=== PATIENT | female | born 2000 | race Caucasian/White ===

== ENCOUNTER 2023-07-09 15:14 | Emergency (ER) | payer OTHER, SELFPAY ==
[2023-07-09 15:23] VITALS: BP 162/93
[2023-07-09 16:08] LABS: Beta HCG Quantitative 764.43 mIU/ml
--- NOTE | 2023-07-09 16:15 | ED.GENMED ---
History of Present Illness
<Hemal Donohue Jr., PA-C - Last Filed: 07/10/23 11:45>
General
Chief Complaint: Problems
Source: patient and family
Exam Limitations: none
Time Seen by Provider: 07/09/23 16:04
Nursing documentation reviewed up to this point in time: agreed with
Travel History
Have you had any contact with someone who has COVID-19?: No
Do you have any symptoms of coronavirus? Fever > 100 degrees, chills, cough, shortness of breath, sore throat, loss of taste or smell, muscle aches, or headache?: No
History of Present Illness
History of Present Illness:
22-year-old female without with past ministry of PCOS presenting to the emergency department today with concerns of with mild pelvic discomfort. Tested positive last week for patient is with 1 miscarriage. Had 2 positive
tests at home. Denies any vaginal bleeding or discharge. Patient does not have regular menstrual cycles due to PCOS and last menstrual cycle was 3 months ago.
Review of Systems
<Hemal Donohue Jr., PA-C - Last Filed: 07/10/23 11:45>
Review of Systems
Allergies reviewed?: Yes
All Other Systems: ROS reviewed and negative except as documented in HPI and ROS
Phy Exam
<Hemal Donohue Jr., PA-C - Last Filed: 07/10/23 11:45>
Physical Exam
Physical Exam:
GENERAL: Alert , in no apparent distress
EYE: pupils equal and reactive
NECK: Supple, no significant adenopathy.
ENT: o/p clr, mmm.
CARDIAC: Regular rate and rhythm .
LUNGS: Clear breath sounds bilaterally, no acute respiratory distress, no wheezes/rales/rhonchi
ABDOMEN: Soft, without focal tenderness, no r/g, no cvat
NEUROLOGICAL: Alert and oriented, no focal neuro deficits
SKIN: Warm and dry, skin intact.
MUSCULOSKELETAL: No edema, well perfused.
PSYCH: Normal and appropriate interaction.
Course
<Hemal Donohue Jr., PA-C - Last Filed: 07/10/23 11:45>
Orders/Labs/Results
Orders:
Orders
07/09/23 15:31
HCG, Beta Quantitative [Beta HCG Quantitative] Urgent
Is this a screen?: No
07/09/23 16:08
Vital Signs- Treatment ONCE
Frequency: Once
07/09/23 16:26
Urinalysis Reflex To Culture Urgent
Date Specimen was Collected: 07/09/23
Time Specimen was Collected: 16:20
Vital Signs
Initial and Last Documented VS:
Initial Vital Signs
Temp Pulse Resp BP Pulse Ox
98.3 F 102 18 162/93 99
07/09/23 15:23 07/09/23 15:23 07/09/23 15:23 07/09/23 15:23 07/09/23 15:23
Last Documented Vital Signs
Temp Pulse Resp BP Pulse Ox
98.3 F 100 18 134/81 99
07/09/23 15:23 07/09/23 16:30 07/09/23 16:30 07/09/23 16:30 07/09/23 16:30
<Heber Ortega PA-C - Last Filed: 07/09/23 21:19>
Orders/Labs/Results
Orders:
Orders
07/09/23 15:31
HCG, Beta Quantitative [Beta HCG Quantitative] Urgent
Is this a screen?: No
07/09/23 16:08
Vital Signs- Treatment ONCE
Frequency: Once
07/09/23 16:26
Urinalysis Reflex To Culture Urgent
Date Specimen was Collected: 07/09/23
Time Specimen was Collected: 16:20
Vital Signs
Initial and Last Documented VS:
Initial Vital Signs
Temp Pulse Resp BP Pulse Ox
98.3 F 102 18 162/93 99
07/09/23 15:23 07/09/23 15:23 07/09/23 15:23 07/09/23 15:23 07/09/23 15:23
Last Documented Vital Signs
Temp Pulse Resp BP Pulse Ox
98.3 F 100 18 134/81 99
07/09/23 15:23 07/09/23 16:30 07/09/23 16:30 07/09/23 16:30 07/09/23 16:30
Information
Weeks gestation: N/A
Location: N/A
<Hemal Donohue Jr., PA-C - Last Filed: 07/10/23 11:45>
MDM/Problems Addressed
MDM/Problems Addressed:
22-year-old female presenting to the emergency department today with concerns of pelvic discomfort in setting of early . She claims the pain is mild and crampy. Denies vaginal bleeding or discharge. Has no specific scheduled follow-up
did have multiple positive test at home. Here initial blood pressure is elevated heart rate slightly elevated beta quant is 764. Unclear the gestational age due to irregular periods due to PCOS. No belly pain on examination. Patient
well-appearing no acute distress. no bleeding.
<Heber Ortega PA-C - Last Filed: 07/09/23 21:19>
*Critical Care Note
Total Time (30-74mins, 75-104mins- exclusive of procedures): Not Applicable
<Heber Ortega PA-C - Last Filed: 07/09/23 21:19>
Update Note
Update Note:
07/09/2023 1650 PM: Assumed care of patient from Ladarius Donohue PA-C, at shift change. Patient presenting with lower abdominal cramping after a positive home test. No vaginal bleeding. Beta quant 764. Has established OB care through .
[facility]. Plan for ultrasound to rule out ectopic, if negative will be discharged outpatient follow-up
07/09/2023 1810 PM: Patient requesting to leave prior to completion of ultrasound. She states her pain is minimal and would prefer to follow-up with her THIN FILM TECHNICIAN. At this time appears clinically stable, low clinical suspicion for ectopic but she is
encouraged to return the emergency department if her pain worsens. She will call her OB at [facility] in the morning for a follow-up visit
ED Attending Note
<Hemal Donohue Jr., PA-C - Last Filed: 07/10/23 11:45>
-
Portions of this chart may have been created with voice recognition software.� Occasional wrong word or��sound alike� substitutions may have occurred due to the inherent limitations of voice recognition software.
Discharge Plan
Departure
Patient Disposition: Home (Routine Discharge)
Date of Disposition: 07/09/23
Time of Disposition: 18:09
Patient with high blood pressure during this ER visit?: No
Discharge Problem:
Abdominal pain affecting
Referrals:
Keith Larkin MD [Family Provider] -
Activity Restrictions/Additional Instructions:
You came to the emergency department today complaining abdominal pain associated with . We recommended an ultrasound to rule out an ectopic however you elected to leave prior to the completion of this. Please contact your THIN FILM TECHNICIAN
tomorrow for close follow-up, if your pain worsens do not hesitate to return to the emergency department
Interventions
Interventions:
*Risk Screen - Suicide Last Done: 07/09/23 15:23
*General Assessment Last Done: 07/09/23 15:23
*Neglect/Abuse Screening Last Done: 07/09/23 15:23
ED- Fall Risk Assessment Last Done: 07/09/23 16:31
*Nursing Disposition Last Done: 07/09/23 18:13
ED-Female Genitourinary Assessment Last Done: 07/09/23 16:31
Discharge Date and Time
Discharge Date/Time: 07/09/23 18:13
[2023-07-09 16:30] VITALS: BP 134/81
[2023-07-09 16:34] LABS: Urine Albumin Negative (Neg - Trace); Urine Bilirubin Negative (Negative); Urine Character Clear (Clear); Urine Color Yellow; Urine Glucose Negative (Negative); Urine Ketone Negative (Negative); Urine Leukocyte Negative (Negative); Urine Nitrite Negative (Negative); Urine Occult Blood Negative (Negative); Urine Specific Gravity 1.015 (<1.030); Urine Urobilinogen Negative (Neg - 1+)
== END 2023-07-09 18:13 | disposition home or self-care (01) ==
LOC: EMR 15:14
PROVIDERS: Physician Assistant; EMERGENCY PHYSICIAN Emergency Medicine; FAMILY PHYSICIAN Family Medicine
DX: O99.891 Other specified diseases and conditions complicating pregnancy (principal); R10.9 Unspecified abdominal pain
CPT/HCPCS: 99282; 81003; 84702

== ENCOUNTER 2023-08-16 09:17 | Emergency (ER) | payer OTHER, SELFPAY ==
[2023-08-16 09:31] VITALS: BP 132/101
--- NOTE | 2023-08-16 12:19 | ED.GENMED ---
History of Present Illness
General
Chief Complaint: Problems
Source: patient
Exam Limitations: none
Time Seen by Provider: 08/16/23 12:10
Nursing documentation reviewed up to this point in time: agreed with
Travel History
Have you had any contact with someone who has COVID-19?: No
Do you have any symptoms of coronavirus? Fever > 100 degrees, chills, cough, shortness of breath, sore throat, loss of taste or smell, muscle aches, or headache?: No
History of Present Illness
History of Present Illness:
Patient to ED with complaint of vaginal bleeding and back pain. States she is 7 weeks . Seen by OB ([facility]) 1 week ago. Had US confirming . No HR detected. Had HCG 2 weeks ago, reports level at '4000'. Denies fever/chiklls,
n/v/d. Brought to ED by sig other for eval. . States she had a miscarriage at 14weeks 2021
Past History
Past History
ED Past Medical History: None
ED Past Surgical History: Tonsilectomy and Other (wisdom teeth)
Social History
Tobacco: Vaping
Alcohol: None
Drug: Marijuana (stopped 06/2023)
Review of Systems
Review of Systems
Allergies reviewed?: Yes
All Other Systems: ROS reviewed and negative except as documented in HPI and ROS
Constitutional: Reports no symptoms
EENT: Reports no symptoms
Respiratory: Reports no symptoms
Cardiac: Reports no symptoms
ABD/GI: Reports no symptoms
: Reports bleeding
Musculoskeletal: Reports back pain
Skin: Reports no symptoms
Neurological: Reports no symptoms
Psychiatric: Reports no symptoms
Phy Exam
General Physical Exam
General Presentation: well appearing and no apparent distress
General age: appears stated age
General Skin: warm and dry
General Habitus: normal
General Mental: alert
Gastrointestinal Exam
Gastrointestinal Exam: non tender and soft
Genitourinary Exam Female
Exam Female: other (Exam deferred. Pelvic US ordered)
Musculoskeletal Exam
Musculoskeletal Exam: full ROM
Skin Exam
Skin Exam: normal color and warm/dry
Psychiatric Exam
Psychiatric Exam: normal mood/affect
Course
Orders/Labs/Results
Orders:
Orders
08/16/23 12:17
US Pelvis W Transvag Combined Urgent
Reason For Exam: bleeding
08/16/23 12:39
Complete Blood Count/With Diff Urgent
Comprehensive Metabolic Panel Urgent
HCG, Beta Quantitative [Beta HCG Quantitative] Urgent
Is this a screen?: No
Abnormal Lab Results
08/16/23
12:39
WBC 13.0 H 10^3/uL
(4.8-10.8)
RBC 3.91 L 10^6/uL
(4.20-5.40)
Hgb 11.9 L g/dL
(12.0-16.0)
Hct 33.8 L %
(37.0-47.0)
Plt Count 441 H 10^3/uL
(130-400)
Absolute Neuts (auto) 8.4 H 10^3/uL
(1.4-6.5)
Absolute Monos (auto) 0.8 H 10^3/uL
(0.1-0.6)
AST 41 H U/L
(14-36)
ALT 45 H U/L
(0-35)
08/16/23 12:39
08/16/23 12:39
Vital Signs
Initial and Last Documented VS:
Initial Vital Signs
Temp Pulse Resp BP Pulse Ox
98.7 F 114 20 132/101 98
08/16/23 09:31 08/16/23 09:31 08/16/23 09:31 08/16/23 09:31 08/16/23 09:31
Last Documented Vital Signs
Temp Pulse Resp BP Pulse Ox
98.7 F 79 16 117/62 98
08/16/23 09:31 08/16/23 14:55 08/16/23 14:55 08/16/23 14:55 08/16/23 14:55
Information
Weeks gestation: Weeks: (7 wees)
Location: N/A
*Radiology
Radiology exam reviewed: radiology read reviewed
*Pulse Oximetry
Patient hypoxic: no
*Critical Care Note
Total Time (30-74mins, 75-104mins- exclusive of procedures): Not Applicable
Update Note
Update Note:
Discussed US finding with patient. No sac noted. Probable miscarriage. She is discharged home and will follow up with her ADMINISTRATIVE OFFICE ASSISTANT in AM to continue serial HCG. Given instructions on s/s to return to ED and she is agreeable to plan.
ED Attending Note
-
Portions of this chart may have been created with voice recognition software.� Occasional wrong word or��sound alike� substitutions may have occurred due to the inherent limitations of voice recognition software.
Discharge Plan
Departure
Patient Disposition: Home (Routine Discharge)
Date of Disposition: 08/16/23
Time of Disposition: 14:41
Patient with high blood pressure during this ER visit?: No
Condition: Good
Covid-19: Not Applicable
Discharge Problem:
Miscarriage
Instructions: Miscarriage (DC)
Referrals:
Keith Larkin MD [Family Provider] -
Activity Restrictions/Additional Instructions:
Follow up with your electronic induction hardener in the AM. You will need to have your HCG level rechecked. Return to the emergency dpeartment immediately for fever/chills, increasing pain, increasing bleeding, lethargy, or for any further concerns.
Interventions
Interventions:
*Risk Screen - Suicide Last Done: 08/16/23 12:28
*General Assessment Last Done: 08/16/23 12:28
*Neglect/Abuse Screening Last Done: 08/16/23 12:28
ED- Fall Risk Assessment Last Done: 08/16/23 12:28
*ED COVID-19 Vaccine History Last Done: 08/16/23 12:28
*Nursing Disposition Last Done: 08/16/23 14:55
ED-Female Genitourinary Assessment Last Done: 08/16/23 12:28
Discharge Date and Time
Discharge Date/Time: 08/16/23 15:00
Print Language: TUNISIAN
[2023-08-16 12:28] VITALS: BMI 27.3
[2023-08-16 12:54] LABS: % Basophils 0.3 % (0-2); % Immature Granulocytes 0.3 % (0-0.5); % Lymphocytes 25.5 % (20.5-51.1); % Monocytes 6.5 % (1.7-9.3); % Neutrophils 64.4 % (42.2-75.2); Absolute Eosinophils 0.4 10^3/uL (0-0.7); Absolute Lymphocytes 3.3 10^3/uL (1.2-3.4); Absolute Monocytes 0.8 10^3/uL (0.1-0.6); Absolute Neutrophils 8.4 10^3/uL (1.4-6.5); Hematocrit 33.8 % (37.0-47.0); Hemoglobin 11.9 g/dL (12.0-16.0); Mean Corp Hgb Conc. 35.2 g/dL (33.0-37.0); Mean Corpuscular Hgb 30.4 pg (27.0-31.0); Mean Corpuscular Volume 86.4 fL (81.0-99.0); Mean Platelet Volume 9.1 fL (7.4-10.4); Nucleated Red Blood Cells % 0 %; Platelet Count 441 10^3/uL (130-400); Red Blood Cell Count 3.91 10^6/uL (4.20-5.40); Red Cell Dist. Width 12.1 % (11.5-14.5)
[2023-08-16 13:10] LABS: ALT (SGPT) 45 U/L (0-35); AST (SGOT) 41 U/L (14-36); Albumin 4.4 g/dl (3.5-5.0); Alkaline Phosphatase 58 U/L (38-126); Blood Urea Nitrogen 13 mg/dl (7-17); Calcium 9.6 mg/dl (8.4-10.2); Carbon Dioxide 25 mmol/L (22-30); Chloride 104 mmol/L (98-107); Estimated Creatinine Clearance 118 ml/min; Glucose 85 mg/dl (70-99); Potassium 4.3 mmol/L (3.5-5.1); Sodium 135 mmol/L (135-145); Total Bilirubin 0.5 mg/dl (0.2-1.3); Total Protein 7.2 g/dl (6.3-8.2); eGFR > 60.00
[2023-08-16 14:55] VITALS: BP 117/62
== END 2023-08-16 15:00 | disposition home or self-care (01) ==
LOC: EMR 09:17
PROVIDERS: EMERGENCY PHYSICIAN Student in an Organized Health Care Education/Training Program; FAMILY PHYSICIAN Family Medicine
DX: O03.9 Complete or unspecified spontaneous abortion without complication (principal); F17.290 Nicotine dependence, other tobacco product, uncomplicated
CPT/HCPCS: 99284; 76830; 76856; 80053; 84702; 85025